=== PATIENT | female | born 1985 | race Caucasian/White ===

== ENCOUNTER → 2023-12-28 07:18 | Outpatient (REF) | payer BC, SELFPAY | LOC: WDC 07:18 | PROVIDERS: ATTENDING PHYSICIAN Obstetrics & Gynecology Gynecology; FAMILY PHYSICIAN Family Medicine | DX: Z12.31 Encounter for screening mammogram for malignant neoplasm of breast (principal) | CPT/HCPCS: 77063; 77067 ==

== ENCOUNTER → 2024-08-19 09:42 | Outpatient (REF) | payer BC, SELFPAY | LOC: WDC 09:42 | PROVIDERS: ATTENDING PHYSICIAN Physician Assistant Medical | DX: N63.32 Unspecified lump in axillary tail of the left breast (principal); R22.32 Localized swelling, mass and lump, left upper limb | CPT/HCPCS: 76642; 77061; 77065 ==

== ENCOUNTER → 2024-12-31 07:13 | Outpatient (REF) | payer BC, SELFPAY | LOC: WDC 07:13 | PROVIDERS: ATTENDING PHYSICIAN Obstetrics & Gynecology Gynecology | DX: Z12.31 Encounter for screening mammogram for malignant neoplasm of breast (principal) | CPT/HCPCS: 77063; 77067 ==

== ENCOUNTER 2025-04-15 15:15 | Emergency (ER) | payer BC, SELFPAY ==
[2025-04-15 15:34] VITALS: BP 170/108
[2025-04-15 15:53] LABS: Hematocrit 42.3 % (37.0-47.0); Hemoglobin 14.0 g/dL (12.0-16.0); Mean Corp Hgb Conc. 33.1 g/dL (33.0-37.0); Mean Corpuscular Volume 87.8 fL (81.0-99.0); Nucleated Red Blood Cells % 0 %; Platelet Count 228 10^3/uL (130-400); Red Cell Dist. Width 12.5 % (11.5-14.5)
[2025-04-15 16:04] LABS: ALT (SGPT) 29 U/L (0-35); AST (SGOT) 28 U/L (14-36); Albumin 4.2 g/dl (3.5-5.0); Alkaline Phosphatase 57 U/L (38-126); Blood Urea Nitrogen 18 mg/dl (7-17); Calcium 9.1 mg/dl (8.4-10.2); Carbon Dioxide 23 mmol/L (22-30); Chloride 109 mmol/L (98-107); Glucose 98 mg/dl (70-99); Lipase 172 U/L (23-300); Potassium 4.5 mmol/L (3.5-5.1); Sodium 136 mmol/L (135-145); Total Protein 7.4 g/dl (6.3-8.2); eGFR > 60.00
[2025-04-15 18:14] VITALS: BMI 36.0
[2025-04-15 18:15] VITALS: BP 122/64
--- NOTE | 2025-04-15 18:26 | ED.GENMED ---
History of Present Illness
General
Chief Complaint: Abdominal Symptoms
Source: patient and records
Exam Limitations: none
Time Seen by Provider: 04/15/25 17:54
History of Present Illness
History of Present Illness:
40yoF with a history of Crohn's disease s/p ileostomy in 2010 presenting for evaluation of decreased output from her ostomy. Symptoms began this morning around 8 AM. 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
experiences about once a year. These typically resolve after she receives IV Toradol and 1L of IV fluids. She has tried multiple things at home including Bentyl, walking, and manual disimpaction but was unable to relieve the blockage. She reports
some mild abdominal discomfort but denies any overt pain. She was nauseous earlier but has not vomited.
Past History
Past History
ED Past Medical History: Other (Crohn's, kidney stone)
ED Past Surgical History: Bowel resection (with ileostomy.) and Urological (Kidney stone retrieval)
Social History
Tobacco: Non-smoker
Personal: Single
Employment: Employed
Family History
Family History: Other (Noncontributory)
Phy Exam
General Physical Exam
General Presentation: well appearing and no apparent distress
General Skin: warm and dry
General Habitus: normal
General Mental: alert
ENT Exam
ENT Exam: normocephalic
Pulmonary Exam
Pulmonary Exam: no respiratory distress
Gastrointestinal Exam
Gastrointestinal Exam: non tender, soft, non distended, surgical scar and other (Abdomen soft, nondistended, nontender. No rebound or guarding.)
External Findings: ileostomy
Neurological Exam
Neurological Exam: alert
Ese Coma Scale
Eye Opening: Spontaneous
Verbal Response: Oriented
Motor Response: Obeys Commands
GCS Total Score: 15
Skin Exam
Skin Exam: normal color and warm/dry
Psychiatric Exam
Psychiatric Exam: normal mood/affect
Course
Orders/Labs/Results
Orders:
Orders
04/15/25 15:40
Complete Blood Count/With Diff Urgent
Comprehensive Metabolic Panel Urgent
Lipase Urgent
04/15/25 18:25
0.9% Sodium Chloride 1000 ml [Nss] 1,000 ml IV BOLUS
Ketorolac [Toradol] 15 mg IV NOW STA
04/15/25 19:14
Ketorolac [Toradol] 15 mg IV NOW STA
Abnormal Lab Results
04/15/25
15:40
MPV 10.6 H fL
(7.4-10.4)
Absolute Monos (auto) 1.0 H 10^3/uL
(0.1-0.6)
Monocytes % 9.6 H %
(1.7-9.3)
Chloride 109 H mmol/L
(98-107)
BUN 18 H mg/dl
(7-17)
04/15/25 15:40
04/15/25 15:40
Vital Signs
Initial and Last Documented VS:
Initial Vital Signs
Temp Pulse Resp Pulse Ox
98 F 63 18 100
04/15/25 15:28 04/15/25 15:28 04/15/25 15:28 04/15/25 15:28
Last Documented Vital Signs
Temp Pulse Resp BP Pulse Ox
98 F 58 13 124/74 99
04/15/25 15:28 04/15/25 19:30 04/15/25 19:30 04/15/25 19:54 04/15/25 19:30
MDM/Problems Addressed
Differential Diagnosis Includes:
40yoF here for decreased output from ostomy. States she has a stricture near the stoma that sometimes causes blockages. This resolves after receiving IV Toradol and fluids and she is requesting this. No vomiting. C/o mild abdominal discomfort
without overt pain. She is hypertensive with otherwise stable vital signs. She is well-appearing in no acute distress. Abdominal exam is benign without signs of peritonitis. Differential diagnosis includes: Stoma stricture, constipation, bowel
obstruction
Initial ED plan: Labs obtained in triage which are unremarkable. Will trial IV Toradol and fluid bolus and reassess.
*Pulse Oximetry
SaO2: 100
Oxygen Mode of Delivery: Room air
Patient hypoxic: no (100%)
*Critical Care Note
Total Time (30-74mins, 75-104mins- exclusive of procedures): Not Applicable
Update Note
Update Note:
Patient reassessed after medications and she is feeling significantly improved. There is now normal output in the ostomy bag and patient feels comfortable with discharge. She was advised to follow-up with her contract serviceman and ED return
precautions reviewed. Patient discharged in stable condition.
ED Attending Note
-
Portions of this chart may have been created with voice recognition software.� Occasional wrong word or��sound alike� substitutions may have occurred due to the inherent limitations of voice recognition software.
Discharge Plan
Departure
Patient Disposition: Home (Routine Discharge)
Date of Disposition: 04/15/25
Time of Disposition: 19:15
Patient with high blood pressure during this ER visit?: No
Discharge Problem:
Complication of ostomy
Instructions: Abdominal Pain
Prescriptions:
No Action
norethindrone-e.estradiol-iron [Tilia Fe] 1 EACH tablet
1 ea PO DAILY
omeprazole 40 MG capsule,delayed release(DR/EC)
40 mg PO DAILY
sertraline 25 MG tablet
50 mg PO DAILY
metoprolol succinate 25 MG tablet extended release 24 hr
25 mg PO BID
cholecalciferol (vitamin D3) 1,000 UNITS tablet
1,000 units PO DAILY
tamsulosin 0.4 MG capsule
0.4 mg PO DAILY Qty: 15 0RF
cefadroxil [Duricef] 500 MG capsule
500 mg PO BID Qty: 14 0RF
tamsulosin 0.4 MG capsule
0.4 mg PO DAILY Qty: 10 0RF
ketorolac 10 MG tablet
10 mg PO QIDPRN PRN (Reason: abdominal pain) Qty: 6 0RF
ondansetron 4 MG tablet,disintegrating
4 mg PO QIDPRN PRN (Reason: nausea/vomiting) Qty: 20 0RF
ketorolac 10 mg tablet
10 mg PO TID PRN (Reason: abdominal pain) Qty: 10 0RF
ondansetron 4 mg tablet,disintegrating
4 mg PO QID PRN (Reason: nausea and vomiting) Qty: 20 0RF
Stand Alone Forms: Return to Work
Activity Restrictions/Additional Instructions:
Please follow-up with your contract serviceman tomorrow. Return to the ER with any new or worsening symptoms including abdominal pain or vomiting.
Interventions
Interventions:
*Risk Screen - Suicide Last Done: 04/15/25 15:32
*General Assessment Last Done: 04/15/25 15:32
*Neglect/Abuse Screening Last Done: 04/15/25 15:32
*ED- Fall Risk Assessment Last Done: 04/15/25 18:21
*ED COVID-19 Vaccine History Last Done: 04/15/25 15:32
*Nursing Disposition Last Done: 04/15/25 19:54
[facility]pm[facility]-Kdgrcnahcb Assessment Last Done: 04/15/25 18:21
Discharge Date and Time
Discharge Date/Time: 04/15/25 19:55
Print Language: BENGALI
[2025-04-15] MEDS: TORADOL 15 MG IV ×2 (18:39→19:23)
--- NOTE | 2025-04-15 18:41 | VATNOTE ---
Pt arrived to ED w/ port already accessed. Pt receives home IV fluids 3x week. Pt accesses and deaccesses self at home. Pt went over her method of accessing her port and it was in sterile fashion per pt's description. No biopatch on port b/c per pt,
she is worried one of her pets will scratch it in her sleep. Pt stated she accessed herself today at 1245.
[2025-04-15] MEDS: NSS 1000 IV (18:43)
[2025-04-15 19:54] VITALS: BP 124/74
== END 2025-04-15 19:55 | disposition home or self-care (01) ==
LOC: EMR 15:15
PROVIDERS: Emergency Medicine; EMERGENCY PHYSICIAN Student in an Organized Health Care Education/Training Program; FAMILY PHYSICIAN Family Medicine
DX: K94.13 Enterostomy malfunction (principal); K50.90 Crohn's disease, unspecified, without complications; Z90.49 Acquired absence of other specified parts of digestive tract
CPT/HCPCS: 99284; 96374; 96376; 80053; 83690; 85025

== ENCOUNTER → 2025-05-06 17:24 | Outpatient (REF) | payer BC, SELFPAY | LOC: PAVMRI 17:24 | PROVIDERS: ATTENDING PHYSICIAN Family Medicine Adult Medicine; FAMILY PHYSICIAN Family Medicine | DX: M79.641 Pain in right hand (principal) | CPT/HCPCS: 73218 ==